=== PATIENT | male | born 1985 | race Caucasian/White ===

== ENCOUNTER 2023-07-29 08:01 | Emergency (ER) | payer OTHER, SELFPAY ==
--- NOTE | ~2023-07-29 | XR_ITS ---
EXAMINATION: XR finger 2nd RT min 2V INDICATION: Right second finger pain TECHNIQUE: Four views of the right second finger are obtained. COMPARISON: None available FINDINGS: No fracture, dislocation, or subluxation. The bones and joint spaces are normal. There is m ild soft tissue swelling near the proximal interphalangeal joint. IMPRESSION: 1. No acute osseous abnormality. If there is high clinical suspicion for fracture, consider repeat ra diographs in 7-10 days to evaluate for productive changes of bony healing. Reviewed, dictated and finalized at location [facility] IMPRESSION: 1. No acute osseous abnormality. If there is high clinical suspicion for fractu re, consider repeat radiographs in 7-10 days to evaluate for productive changes of bony healing.
[2023-07-29 08:15] VITALS: BP 144/97; PULSE 81; RESP 16; TEMP 37.2; O2SAT 100
--- NOTE | 2023-07-29 08:26 | ED.GENADULT ---
HPI - General Adult General Chief complaint: Extremity Injury, Upper Stated complaint: right pointer finger WC Source: patient Mode of arrival: ambulatory Limitations: no limitations History of Present Illness HPI narrative: Patient presents for evaluation of a right index finger injury. He was at work today when his finger got caught between two kegs of beer. His pain is constant, throbbing, 7/10 severity. Reports some tingling in the distal phalanx of the affected digit. He is right-hand dominant. He has not taken any medication for his pain. Movement makes his pain worse. He has not taken anything for his pain. Date of last tetanus unknown. Related Data Allergies Allergy/AdvReac Type Severity Reaction Status Date / Time No Known Allergies Allergy Verified 07/29/23 08:16 Review of Systems Review of Systems: CONSTITUTIONAL: Denies fever, chills, or sweats. EYES: Denies visual changes, redness, or discharge. ENT: Denies rhinorrhea, congestion, sore throat, or otalgia. CARDIOVASCULAR: Denies chest pain, palpitations, or edema. RESPIRATORY: Denies cough or dyspnea. GASTROINTESTINAL: Denies abdominal pain, nausea, vomiting, or diarrhea. GENITOURINARY: Denies dysuria or hematuria. SKIN: Reports avulsion to the right index finger. MUSCULOSKELETAL: Reports pain in the right index finger. Denies back pain, joint pain otherwise or myalgia. NEUROLOGIC: Denies headache, numbness, dizziness, or weakness. PSYCHIATRIC: Denies anxiety or depression. PMFSH Past Medical History Medical History (Updated 07/29/23 @ 08:42 by Travis Kidd, [facility], ) No pertinent past medical history Surgical History Surgical History No pertinent past surgical history Family History Family History Mother Family history non-contributory Social History Social History (Updated 07/29/23 @ 08:36 by Travis Kidd, [facility], ) Substance use: never Living arrangements: with family Gender identity (if verbalized by the patient): Male Sexual Orientation (if Verbalized by the Patient): Straight or Heterosexual Spiritual care concerns: No Exam Narrative: GENERAL: Well-appearing, well-nourished, and in no acute distress. HEAD: Normocephalic, atraumatic. EYES: PERRLA and EOMI. ENT: Nares clear, no rhinorrhea or epistaxis. Mucous membranes moist. Oropharynx without tonsillar hypertrophy exudate or other lesions. Bilateral TMs pearly [place] nonbulging NECK: Supple. No adenopathy or masses. No carotid bruits or JVD CHEST: Clear to auscultation. No respiratory distress. No wheezes rales or rhonchi HEART: Regular rate and rhythm. No murmur heard. Normal peripheral pulses. ABDOMEN: Soft, nontender, nondistended, normal active bowel sounds. EXTREMITIES: Tenderness in the PIP joint and proximal phalanx of the right index finger. SKIN: Approximately 1 cm avulsion injury noted to the dorsal aspect of the right index finger. Skin is warm, dry, no rash. NEURO: No focal deficits. Alert and oriented x3. PSYCH: Normal mood and affect. Course Course Emergency Course: This is a 38-year-old male who presented for evaluation of an injury to the right index finger. X-ray negative for fracture. Superficial avulsion was cleaned. Triple antibiotic ointment applied. Splint placed. Pt tolerated well. Advised on RICE therapy. Recommended follow up with primary to ensure no occult fracture. Go to the ER for worsening symptoms. Pt in agreement with plan of care. Level of Care: Express Care Visit Vital Signs Vital signs: Vital Signs Temperature 37.2 C 07/29/23 08:15 Pulse Rate 81 07/29/23 08:15 Respiratory Rate 16 07/29/23 08:15 Blood Pressure 144/97 H 07/29/23 08:15 Pulse Oximetry 100 07/29/23 08:15 Oxygen Delivery Room Air 07/29/23 08:15 Temperature 37.2 C 07/29/23 08:15 Pulse Rate 81
[2023-07-29] MEDS: IBUPROFEN 400 MG TABLET 800 MG PO (08:44)
[2023-07-29] MEDS: TETANUS,DIPHTHERIA,AC PERTUSSIS ADULT (0.5 ML) BOOSTRIX IM (08:45)
== END 2023-07-29 08:56 | disposition home or self-care (01) ==
PROVIDERS: Emergency Provider Nurse Practitioner
DX: S60.021A Contusion of right index finger without damage to nail, initial encounter (principal); Z23 Encounter for immunization; W23.1XXA Caught, crushed, jammed, or pinched between stationary objects, initial encounter
CPT/HCPCS: 29130; 73140; 90471; 90715; 99214; A9270; G0463